=== PATIENT | female | born 1940 | race Caucasian/White ===

== ENCOUNTER → 2017-12-05 | Outpatient (CLI) | payer MEDICARE, OTHER ==
[~2017-12-05] MED LIST: ADULT LOW DOSE81 MG PO; ALPRAZOLAM 0.0.25 M1 PO; AMBIEN 5 MG TABL5 M1; ASPIR 8181 M1 PO; CALCIUM 500 +1 EAC4 PO; CALCIUM CITRAT1 EA14 PO; CEROVITE SENIO1 EACH; CIPRO500 MG PO; COLACE100 MG PO; FIBERCON625 M1 PO; FISHOIL; FLEXERIL; HYDROCODON-ACE1 EAC7; LABETALOL HCL100 MG PO; LAMICTAL XR100 MG PO; LAMICTAL XR25 MG PO; LEVOTHROID OR; LEVOXYL75 MCG PO; LISINOPRIL5 MG PO; MICARDIS 20MG T20 M1; MICARDIS 20MG T20 M1 PO; MICONAZOLE NITR45 G1 TOP; NORCO 5-325 TA1 EACH PO; NORVASC 5 MG TAB5 MG PO; OMEPRAZOLE 20 M20 M1 PO; ONDANSETRON HCL4 M2 PO; OXYBUTYNIN 5 MG5 M1; OXYBUTYNIN 5 MG5 M1 GT; OXYCODONE HCL 55 MG PO; PREDNISONE 10 M10 M1 PO; PRISTIQ100 MG PO; TASIGNA150 MG PO; TYLENOL325 MG PO; VERAPAMIL HCL180 M4 PO; VITAMIN D400 UNI1; VYTORIN 10-201 EACH PO; VYTORIN 10-401 EACH PO; WOMEN'S 50+ DA1 EACH; WOMEN'S DAILY1 EAC1 PO; XANAX 0.25 MG0.25 MG PO; ZANTAC 150MG T150 MG PO; ZOFRAN 4 MG ORAL4 M1 DIS; ZOLOFT 50 MG TA50 M1 PO; ZOLOFT100 MG PO
--- NOTE | 2017-12-05 14:49 | 2DMMODE ---
[place] [address] 2 D/M-MODE ECHOCARDIOGRAM Name: RICKIE CHAKRABORTY Room: [facility]#: [id number] Admission: 12/05/17 Attend Phys: Angel Duval, Discharge: Date of : 40 Date of Service: 12/05/17 1448 Report #: [id number] THIS REPORT FOR: //name// APPROVED REPORT Study performed: 12/05/2017 13:17:37 EXAM: Comprehensive 2D, Doppler, and color-flow Echocardiogram Patient Location: Out-Patient Status: routine BSA: 1.63 HR: 78 bpm BP: 140/82 mmHg Other Information Study Quality: Fair Indications Dyspnea Hypertension/HDD 2D Dimensions IVSd: 8.32 (7-11mm) LVOT Diam: 19.25 (18-24mm) LVDd: 40.56 mm PWd: 9.57 (7-11mm) Ascending Ao: 25.64 (22-36mm) LVDs: 23.35 (25-40mm) Aortic Root: 23.09 mm Volumes Left Atrial Volume (Systole) LA ESV Index: 11.70 mL/m2 Aortic Valve AoV Peak Brannon.: 1.11 m/s AO Peak Gr.: 4.95 mmHg LVOT Max P.80 mmHg AO Mean Gr.: 2.80 mmHg LVOT Mean P.45 mmHg LVOT Max V: 0.84 m/s AO V2 VTI: 21.34 cm LVOT Mean V: 0.56 m/s TONYA (VTI): 2.32 cm2 LVOT V1 VTI: 17.01 cm Mitral Valve E/A Ratio: 0.66 MV Decel. Time: 229.99 ms MV E Max Brannon.: 0.80 m/[place] [address] 2 D/M-MODE ECHOCARDIOGRAM Name: RICKIE CHAKRABORTY Room: [facility]#: [id number] Admission: 12/05/17 Attend Phys: Angel Duval, Discharge: Date of : 40 Date of Service: 12/05/17 1448 Report #: [id number] MV PHT: 66.70 ms MVA (PHT): 3.30 cm2 TDI E/Lateral E': 11.43 E/Medial E': 11.43 Medial E' Brannon.: 0.07 m/s Lateral E' Brannon.: 0.07 m/s Pulmonary Valve PV Peak Brannon.: 1.08 m/s PV Peak Gr.: 4.63 mmHg Left Ventricle The left ventricle is normal size. There is normal LV segmental wall motion. There is normal left ventricular wall thickness. Left ventricular systolic function is normal. LVEF is 55-60%. Grade I - abnormal relaxation pattern. Right Ventricle The right ventricle is normal size. The right ventricular systolic function is normal. Atria The left atrium size is normal. The right atrium size is normal. Aortic Valve The aortic valve is normal in structure. No aortic regurgitation is present. There is no aortic valvular stenosis. Mitral Valve The mitral valve is normal in structure. There is no mitral valve regurgitation noted. No evidence of mitral valve stenosis. Tricuspid Valve The tricuspid valve is normal in structure. There is no tricuspid valve regurgitation noted. Pulmonic Valve The pulmonary valve is normal in structure. There is no pulmonic valvular regurgitation. Great Vessels The aortic root is normal in size. IVC is normal in size and collapses >50% with inspiration[place] [address] 2 D/M-MODE ECHOCARDIOGRAM Name: RICK[facility]RABORTY [id number] Admission: 12/05/17 Attend Phys: Angel Duval, Discharge: Date of : 40 Date of Service: 12/05/17 1448 Report #: [id number] There is no pericardial effusion. <Conclusion> The left ventricle is normal size. There is normal left ventricular wall thickness. Left ventricular systolic function is normal. LVEF is 55-60%. Grade I - abnormal relaxation pattern. IVC is normal in size and collapses >50% with inspiration. <ELECTRONICALLY SIGNED> By: Angel Duval MD, FACC 12/05/17 1448 144 Angel Duval MD, FACC /INF
== END ==
LOC: M.CRD 13:00
DX: I51.7 Cardiomegaly (principal); I10 Essential (primary) hypertension